=== PATIENT | female | born 1985 ===

== ENCOUNTER 2018-09-18 17:48 | Emergency (ER) | payer MEDICAID, OTHER | END 2018-09-18 18:51 | disposition left against medical advice (07) | LOC: C.ER 17:48 | DX: Z02.89 Encounter for other administrative examinations (principal); R07.0 Pain in throat ==

== ENCOUNTER 2018-09-18 19:58 | Emergency (ER) | payer OTHER ==
[2018-09-18 20:19] VITALS: RESP 18
--- NOTE | 2018-09-18 20:57 | C.PDOC ---
History Of Present Illness 33 y/o female presents to the ED complaining of cough and congestion, onset 2 days ago. (+) sick contact while staying with her mother over the weekend, who had similar symptoms. Patient denies any wheezing, SOB, chest tightness, nausea, vomiting, headaches, or fever. She also admits to history of smoking, and has been coughing up black sputum. Time Seen by Provider: 09/18/18 20:32 Chief Complaint (Nursing): Cough, Cold, Congestion History Per: Patient History/Exam Limitations: no limitations Onset/Duration Of Symptoms: Days Current Symptoms Are (Timing): Still Present Sick Contacts (Context): Family Member(s) Associated Symptoms: denies: Fever Past Medical History Reviewed: Historical Data, Nursing Documentation, Vital Signs Vital Signs: Last Vital Signs Temp 98.6 F 09/18/18 20:15 Pulse 71 09/18/18 20:15 Resp 18 09/18/18 20:15 BP 106/63 09/18/18 20:15 Pulse Ox 100 09/18/18 20:15 - Medical History PMH: Anxiety, Bipolar Disorder - [employer] Procedures INJECT/INFUSE NEC (09/14/13) Family History: States: No Known Family Hx - Social History Hx Tobacco Use: Yes Hx Alcohol Use: No (Denied) Hx Substance Use: Yes (Past/Present) - Immunization History Hx Tetanus Toxoid Vaccination: No Hx Influenza Vaccination: No Hx Pneumococcal Vaccination: No Review Of Systems Constitutional: Negative for: Fever, Chills ENT: Positive for: Nose Discharge, Nose Congestion. Negative for: Ear Pain Cardiovascular: Negative for: Chest Pain Respiratory: Positive for: Cough. Negative for: Shortness of Breath, Wheezing Gastrointestinal: Negative for: Nausea, Vomiting, Diarrhea Neurological: Negative for: Headache, Dizziness Physical Exam - Physical Exam Appears: Non-toxic, No Acute Distress Skin: Warm, Dry, No Rash Head: Atraumatic, Normacephalic Eye(s): bilateral: Normal Inspection, PERRL, EOMI Oral Mucosa: Moist Throat: Normal, No Erythema, No Exudate Neck: Normal ROM, Supple Chest: Symmetrical Cardiovascular: Rhythm Regular, No Murmur Respiratory: No Rales, No Rhonchi, No Stridor Extremity: Normal ROM, No Pedal Edema, No Calf Tenderness Pulses: Left Radial: Normal, Right Radial: Normal Neurological/Psych: Oriented x3, Normal Speech ED Course And Treatment - Laboratory Results Urine POC: Negative O2 Sat by Pulse Oximetry: 100 (RA) Pulse Ox Interpretation: Normal - Radiology CXR: Interpreted by Me CXR Interpretation: Yes: No Acute Disease Progress Note: Urine preg ordered. CXR taken Disposition - Disposition Disposition: HOME/ ROUTINE Disposition Time: 21:43 Condition: STABLE Additional Instructions: Follow up within 1-2 days. Return to ED if feel worse. Prescriptions: Brompheniramine/Pseudoephed/Dm [Bromfed Dm Cough 118 ml] 10 ml PO Q4 #300 ml Azithromycin [Zithromax] 250 mg PO DAILY #4 tab Instructions: Upper Respiratory Infection (ED) Forms: [facility] (Malawian) - Clinical Impression Clinical Impression: Upper respiratory infection - PA / WRITER EDITOR / Resident Statement MD/DO has reviewed & agrees with the documentation as recorded. - Scribe Statement The provider has reviewed the documentation as recorded by the Scribe (Kimberlee Bower) All medical record entries made by the Scribe were at my direction and personally dictated by me. I have reviewed the chart and agree that the record accurately reflects my personal performance of the history, physical exam, medical decision making, and the department course for this patient. I have also personally directed, reviewed, and agree with the discharge instructions and disposition.
[2018-09-18 21:48] VITALS: BP 118/71; PULSE 82; TEMP 98.3
[2018-09-18 22:42] VITALS: O2SAT 100
--- NOTE | 2018-09-19 08:38 | RAD ---
Date of service: 09/18/2018 HISTORY: productive cough/smoker COMPARISON: No prior. TECHNIQUE: Chest PA and lateral FINDINGS: LUNGS: Mild venous congestion. PLEURA: Blunted right costophrenic angle which may represent pleural effusion and/or pleural thickening. CARDIOVASCULAR: No aortic atherosclerotic calcification present. Normal cardiac size. OSSEOUS STRUCTURES: Postsurgical changes in the spine. VISUALIZED UPPER ABDOMEN: Normal. OTHER FINDINGS: None. IMPRESSION: Mild venous congestion. Blunted right costophrenic angle which may represent pleural effusion and/or pleural thickening.
== END 2018-09-18 21:58 | disposition home or self-care (01) ==
LOC: C.ER 19:58
DX: J06.9 Acute upper respiratory infection, unspecified (principal); Z72.0 Tobacco use

== ENCOUNTER 2018-12-18 20:05 | Emergency (ER) | payer OTHER ==
[2018-12-18 20:17] VITALS: BP 114/76; PULSE 67; RESP 16; TEMP 97.8; O2SAT 99
--- NOTE | 2018-12-18 20:30 | C.PDOC ---
History Of Present Illness 33 y/o female presents to the ED for evaluation of body aches since yesterday. Patient states while she was walking yesterday she tripped on the sidewalk and fell. She is now complaining of pain to her back, left arm and shoulder, and bilateral feet. Family prompted her to come in to get checked out. Otherwise she denies any LOC or head trauma. Patient has no extremity weakness, numbness, paresthesias, or other injury. Time Seen by Provider: 12/18/18 20:25 Chief Complaint (Nursing): Lower Extremity Problem/Injury History Per: Patient History/Exam Limitations: no limitations Onset/Duration Of Symptoms: Days (1) Current Symptoms Are (Timing): Still Present Past Medical History Reviewed: Historical Data, Nursing Documentation, Vital Signs Vital Signs: Last Vital Signs Temp 97.8 F 12/18/18 20:12 Pulse 67 12/18/18 20:12 Resp 16 12/18/18 20:12 BP 114/76 12/18/18 20:12 Pulse Ox 99 12/18/18 20:12 - Medical History PMH: Anxiety, Bipolar Disorder - [employer] Procedures INJECT/INFUSE NEC (09/14/13) Family History: States: Unknown Family Hx - Social History Hx Tobacco Use: Yes Hx Alcohol Use: No (Denied) Hx Substance Use: Yes (Past/Present) - Immunization History Hx Tetanus Toxoid Vaccination: No Hx Influenza Vaccination: No Hx Pneumococcal Vaccination: No Review Of Systems Constitutional: Negative for: Fever, Weakness Cardiovascular: Negative for: Chest Pain Respiratory: Negative for: Shortness of Breath Gastrointestinal: Negative for: Nausea, Vomiting Musculoskeletal: Positive for: Shoulder Pain (L), Back Pain, Foot Pain (B/L), Other (Diffuse body aches) Skin: Negative for: Rash Neurological: Negative for: Weakness, Numbness Physical Exam - Physical Exam Appears: Non-toxic, No Acute Distress Skin: Normal Color, Warm, No Rash Head: Atraumatic, Normacephalic Eye(s): bilateral: Normal Inspection (no scleral icterus), PERRL, EOMI Neck: Normal ROM Chest: Symmetrical Cardiovascular: Rhythm Regular, No Murmur Respiratory: Normal Breath Sounds, No Accessory Muscle Use, Other (Normal inspiratory effort) Gastrointestinal/Abdominal: Soft, No Tenderness, No Distention Back: No CVA Tenderness, No Vertebral Tenderness Extremity: Normal ROM, Tenderness (Soft tissue tenderness on the left shoulder, Mild dorsal tenderness to the bilateral feet), Capillary Refill (< 2 sec), No Swelling (or ecchymosis), Other (Bearing weight without difficulty) Pulses: Left Radial: Normal, Right Radial: Normal Neurological/Psych: Oriented x3, Normal Cranial Nerves Gait: Steady ED Course And Treatment O2 Sat by Pulse Oximetry: 99 (RA) Pulse Ox Interpretation: Normal Medical Decision Making Medical Decision Making: Impression: 33 y/o female with pain to the back, left arm and shoulder, and bilateral feet Patient does not appear to have any acute bony injury at this time. No indication for imaging at this time. Patient will be discharged home with a muscle relaxant. Advised patient to follow up outpatient. Disposition Counseled Patient/Family Regarding: Diagnosis, Need For Followup, Rx Given - Disposition Disposition: HOME/ ROUTINE Disposition Time: 20:29 Condition: STABLE Prescriptions: Cyclobenzaprine [Flexeril] 10 mg PO BID #10 tab Instructions: Muscle and Bone Pain (DC) Forms: General Discharge Instructions, [facility] (Lithuanian), Work Excuse - Clinical Impression Clinical Impression: Accidental fall, Muscle soreness - PA / STUDY HALL SUPERVISOR / Resident Statement MD/DO has reviewed & agrees with the documentation as recorded. - Scribe Statement The provider has reviewed the documentation as recorded by the Lisa Bower All medical record entries made by the Meraibe were at my direction and personally dictated by me. I have reviewed the chart and agree that the record accurately reflects my personal performance of the history, physical exam, medical decision making, and the department course for this patient. I have also personally directed, reviewed, and agree with the discharge instructions and disposition.
== END 2018-12-18 20:51 | disposition home or self-care (01) ==
LOC: C.ER 20:05
DX: M79.10 Myalgia, unspecified site (principal); W01.0XXA Fall on same level from slipping, tripping and stumbling without subsequent striking against object, initial encounter; Y93.01 Activity, walking, marching and hiking; Y92.480 Sidewalk as the place of occurrence of the external cause